=== PATIENT | male | born 1965 | race Caucasian/White ===

== ENCOUNTER 2020-03-19 14:09 | Outpatient (RCR) | payer OTHER | END 2020-06-03 | disposition home or self-care (01) | LOC: ONC 14:09 | PROVIDERS: ATTEND Radiology Radiation Oncology | DX: C44.02 Squamous cell carcinoma of skin of lip (principal); J44.9 Chronic obstructive pulmonary disease, unspecified; Z72.0 Tobacco use; Z90.49 Acquired absence of other specified parts of digestive tract; Z98.890 Other specified postprocedural states; Z86.39 Personal history of other endocrine, nutritional and metabolic disease | CPT/HCPCS: 99204; 99213 ==